=== PATIENT | female | born 1945 | race Hispanic/Latino ===

== ENCOUNTER 2019-10-01 11:36 | Emergency (ER) | payer MEDICARE, SELFPAY ==
[2019-10-01 12:12] VITALS: BP 133/76; PULSE 80; RESP 16; TEMP 36; O2SAT 99
--- NOTE | 2019-10-01 12:18 | ED.SKABFB ---
HPI - Skin/Abscess/Foreign Bdy General Chief complaint: Skin/Abscess/Foreign Body Stated complaint: Rash Time Seen by Provider: 10/01/19 12:05 Source: patient, family and RN notes reviewed Mode of arrival: ambulatory Limitations: language barrier (granddaughter helps translate, when needed) History of Present Illness HPI narrative: Patient presents today complaining of a painful rash to her right buttock x8 days. States it has been continuing to worsen since onset. She has applied hemorrhoid cream, which made the rash worse. History of diabetes, hypertension, A. fib. Denies recent illness. MD complaint: rash Related Data Home Medications Medication Instructions Recorded Confirmed aspirin [Aspirin Low Dose] 81 mg PO DAILY 10/01/19 10/01/19 atorvastatin 20 mg PO DAILY 10/01/19 10/01/19 ferrous sulfate 325 mg PO DAILY 10/01/19 10/01/19 glimepiride 1 mg PO DAILY 10/01/19 10/01/19 hydralazine 25 mg PO TID 10/01/19 10/01/19 insulin glargine [Lantus U-100 40 unit SUBCUT DAILY 10/01/19 10/01/19 Insulin] lisinopril 10 mg PO DAILY 10/01/19 10/01/19 metolazone 5 mg PO WEEKLY 10/01/19 10/01/19 metoprolol tartrate 50 mg PO Q12H 10/01/19 10/01/19 rivaroxaban [Xarelto] 15 mg PO DAILY 10/01/19 10/01/19 spironolactone 25 mg PO DAILY 10/01/19 10/01/19 Allergies Allergy/AdvReac Type Severity Reaction Status Date / Time No Known Allergies Allergy Verified 10/01/19 12:11 Review of Systems Review of Systems: Narrative: CONSTITUTIONAL: Denies body aches, fever, chills, or sweats. EYES: Denies visual changes, redness, or discharge. ENT: Denies rhinorrhea, congestion, sore throat, or otalgia. CARDIOVASCULAR: Denies chest pain, palpitations, or edema. RESPIRATORY: Denies cough or dyspnea. GASTROINTESTINAL: Denies abdominal pain, nausea, vomiting, or diarrhea. GENITOURINARY: Denies dysuria or hematuria. SKIN: Denies wounds. + Rash to right buttock MUSCULOSKELETAL: Denies back pain, joint pain, or myalgia. NEUROLOGIC: Denies headache, numbness, tingling, or weakness. PSYCH: Denies depression or anxiety. [facility] Past Medical History Medical History (Updated 10/01/19 @ 13:28 by Anna Marie, [employer], ) A-fib Diabetes Hypercholesterolemia Hypertension Comments At time of signature, I have reviewed and agree with nursing past medical, surgical, social and family history unless otherwise noted. Please see nursing chart for further information. There is no relevant family history pertinent to the presenting complaint Exam Narrative: Exam Narrative: GENERAL: Well-appearing, well-nourished, and in no acute distress. HEAD: Normocephalic, atraumatic. EYES: EOMI. No redness or drainage. Conjunctivae normal. ENT: Mucous membranes pink and moist. NECK: Normal AROM. CHEST: No respiratory distress. EXTREMITIES: Normal range of motion. No edema. SKIN: Warm, dry. Capillary refill normal. Normal skin turgor. patient seems to have a healing vesicular rash to the right inferior buttock, adjacent to the anus. There is hyperpigmentation from the healing rash, but she also has a large area of erythema and induration that is very tender to palpation that she cannot sit comfortably. NEURO: No focal deficits. Alert and oriented x3. Gait steady. PSYCH: Normal affect. No signs of depression or anxiety. Course Vital Signs Vital signs: Vital Signs Temperature 96.8 F L 10/01/19 12:12 Pulse Rate 80 10/01/19 12:12 Respiratory Rate 16 10/01/19 12:12 Blood Pressure 133/76 10/01/19 12:12 Pulse Oximetry 99 10/01/19 12:12 Temperature 96.8 F L 10/01/19 12:12 Pulse Rate 80 10/01/19 12:12 Respiratory Rate 16 10/01/19 12:12 Blood Pressure 133/76 10/01/19 12:12 Pulse Oximetry 99 10/01/19 12:12 Reviewed. Pt has been instructed to follow up with her PCP regarding her elevated blood pressure today. MDM - Skin/Abscess/Foreign Bdy Differential Diagnosis Differential diagnosis: Likely abscess of skin or subcutaneo
== END 2019-10-01 12:30 | disposition home or self-care (01) ==
PROVIDERS: Emergency Provider Nurse Practitioner; PCP Family Medicine
DX: L03.317 Cellulitis of buttock (principal); R21 Rash and other nonspecific skin eruption; I48.91 Unspecified atrial fibrillation; E11.9 Type 2 diabetes mellitus without complications; E78.00 Pure hypercholesterolemia, unspecified; I10 Essential (primary) hypertension; Z79.82 Long term (current) use of aspirin; Z79.01 Long term (current) use of anticoagulants; Z79.4 Long term (current) use of insulin
CPT/HCPCS: 99213; G0463